=== PATIENT | female | born 1945 | race American Indian/Alaskan Native ===

== ENCOUNTER 2021-08-22 11:35 | Emergency (ER) | payer MEDICARE, OTHER ==
--- NOTE | 2021-08-22 12:12 | XRay Report ---
CHEST 2 VIEWS INDICATION: chest pain. COMPARISON: None FINDINGS: SUPPORT DEVICES: None. HEART: Within normal limits. LUNGS/PLEURA: No acute air space or interstitial disease. No pneumothorax. ADDITIONAL FINDINGS: None. IMPRESSION: 1. No acute findings. Signer Name: Ezequiel Dominguez MD Signed: 08/22/2021 12:07 PM Workstation Name: [id number]
--- NOTE | 2021-08-22 12:19 | Emergency Department Report ---
- General Chief complaint: Weakness Stated complaint: SOB Time Seen by Provider: 08/22/21 11:39 Source: patient, old records reviewed Mode of arrival: Ambulatory Limitations: No Limitations - History of Present Illness Initial comments: 76-year-old female with a past medical history of hypertension, diabetes, GERD, and anemia presents to the hospital complaining of progressively worsening generalized weakness since discharge from [facility] 2 months ago. Patient is a poor historian. Apparently she saw a lemon grower yesterday and states her hemoglobin dropped from 13-8. She denies history of GI bleed and is not currently on iron tablets. She states that during her admission to [facility] 2 months ago she received a blood transfusion for anemia. She produces 2 discharge summaries which only mentioned diabetes and an ED visit for nonspecific chest pain. Patient states she came to the ER today because she felt too weak to go to work and feels lightheaded and needs to rest after walking 2 to 3 feet. She denies headache, chest pain, shortness of breath, nausea, vomiting, melena, hematochezia, or dysuria. She did have some mild watery stool today. Patient was placed on insulin after her recent discharge from [facility]. She continues to check her glucose and denies episodes of hypoglycemia. As per MAR patient has been prescribed meclizine in 2014 normal stress test 04/2015 - Related Data Home Medications Medication Instructions Recorded Confirmed Last Taken Hydralazine HCl [Apresoline TAB] 50 mg PO TID 06/25/13 08/22/21 04/04/15 Losartan [Cozaar] 100 mg PO DAILY 06/25/13 08/22/21 04/04/15 hydroCHLOROthiazide 12.5 mg PO DAILY 06/25/13 08/22/21 04/04/15 [Hydrochlorothiazide] amLODIPine 10 mg PO DAILY 04/04/15 08/22/21 04/04/15 Previous Rx's Medication Instructions Recorded Last Taken Type Magnesium Oxide [Mag-Ox] 400 mg PO QDAY #10 tab 08/22/21 Unknown Rx Meclizine [Antivert] 25 mg PO TID PRN #30 tablet 08/22/21 Unknown Rx Allergies Allergy/AdvReac Type Severity Reaction Status Date / Time No Known Allergies Allergy Verified 08/22/21 17:18 ED Review of Systems ROS: Stated complaint: SOB Other details as noted in HPI Comment: All other systems reviewed and negative ED Past Medical Hx - Past Medical History Hx Hypertension: Yes Hx Diabetes: Yes (not on meds) Hx GERD: Yes - Surgical History Additional Surgical History: gallstone surgery - Social History Smoking Status: Never Smoker - Medications Home Medications: Home Medications Medication Instructions Recorded Confirmed Last Taken Type Hydralazine HCl [Apresoline TAB] 50 mg PO TID 06/25/13 08/22/21 04/04/15 History Losartan [Cozaar] 100 mg PO DAILY 06/25/13 08/22/21 04/04/15 History hydroCHLOROthiazide 12.5 mg PO DAILY 06/25/13 08/22/21 04/04/15 History [Hydrochlorothiazide] amLODIPine 10 mg PO DAILY 04/04/15 08/22/21 04/04/15 History Magnesium Oxide [Mag-Ox] 400 mg PO QDAY #10 tab 08/22/21 Unknown Rx Meclizine [Antivert] 25 mg PO TID PRN #30 tablet 08/22/21 Unknown Rx ED Physical Exam - General Limitations: No Limitations - Other Other exam information: General: No acute distress Head: Atraumatic Eyes: normal appearance ENT: Moist mucous membranes Neck: Normal appearance, no midline tenderness Chest: Clear to auscultation bilaterally CV: Regular rate and rhythm Abdomen: Soft, normal bowel sounds, nontender, nondistended, no rebound or guarding Back: Normal inspection Extremity: Normal inspection, full range of motion Neuro: Alert O x 3, no facial asymmetry, speech clear, no gross motor sensory deficit, [id number] function intact Psych: Appropriate behavior Skin: No rash ED Course Vital Signs 08/22/21 08/22/21 11:39 17:11 Temperature 98.7 F 99.6 F Pulse Rate 109 H 90 Respiratory 20 16 Rate Blood Pressure 148/81 Blood Pressure 151/79 [Right] O2 Sat by Pulse 99 92 Oximetry - Reevaluation(s) Reevaluation #1: 08/22/21 17:24 Patient endorses feeling somewhat better and states that she still feels "a little nervous". Chef Teacher documented room air saturation of 92%. I asked respiratory to verify. Patient does not endorse shortness of breath. Complains of a mild headache and Tylenol was ordered. 08/22/21 17:41 Respiratory therapist room air saturation 95% ED Medical Decision Making - Lab Data Result diagrams: 08/22/21 12:17 08/22/21 12:17 Lab Results 08/22/21 08/22/21 08/22/21 Range/Units 11:41 12:17 12:17 WBC 8.1 (4.5-11.0) K/mm3 RBC 2.45 L (3.65-5.03) M/mm3 Hgb 8.1 L (10.1-14.3) gm/dl Hct 23.2 L (30.3-42.9) % MCV 95 (79-97) fl MCH 33 H (28-32) pg MCHC 35 H (30-34) % RDW 16.2 H (13.2-15.2) % Plt Count 216 (140-440) K/mm3 Lymph % (Auto) 36.5 H (13.4-35.0) % Mcintosh % (Auto) 15.3 H (0.0-7.3) % Eos % (Auto) 0.0 (0.0-4.3) % Baso % (Auto) 0.1 (0.0-1.8) % Lymph # (Auto) 3.0 (1.2-5.4) K/mm3 Mcintosh # (Auto) 1.2 H (0.0-0.8) K/mm3 Eos # (Auto) 0.0 (0.0-0.4) K/mm3 Baso # (Auto) 0.0 (0.0-0.1) K/mm3 Seg Neutrophils % 48.1 (40.0-70.0) % Seg Neutrophils # 3.9 (1.8-7.7) K/mm3 Sodium 136 L (137-145) mmol/L Potassium 3.5 L (3.6-5.0) mmol/L Chloride 98.1 (98-107) mmol/L Carbon Dioxide 23 (22-30) mmol/L Anion Gap 18 mmol/L BUN 8 (7-17) mg/dL Creatinine 1.2 (0.6-1.2) mg/dL Estimated GFR 53 ml/min BUN/Creatinine Ratio 7 % Glucose 120 H (65-100) mg/dL POC Glucose 104 (70-105) mg/dL Calcium 8.4 (8.4-10.2) mg/dL Magnesium (1.7-2.3) mg/dL Total Bilirubin 1.30 H (0.1-1.2) mg/dL AST 25 (5-40) units/L ALT 8 (7-56) units/L Alkaline Phosphatase 34 L (35-129) units/L Troponin T < 0.010 (0.00-0.029) ng/mL Total Protein 7.0 (6.3-8.2) g/dL Albumin 3.8 L (3.9-5) g/dL Albumin/Globulin Ratio 1.2 % TSH (0.270-4.200) mlU/mL Free T4 (0.76-1.46) ng/dL Urine Color (Yellow) Urine Turbidity (Clear) Urine pH (5.0-7.0) Ur Specific [place] (1.003-1.030) Urine Protein (Negative) mg/dL Urine Glucose (UA) (Negative) mg/dL Urine Ketones (Negative) mg/dL Urine Blood (Negative) Urine Nitrite (Negative) Urine Bilirubin (Negative) Urine Urobilinogen (<2.0) mg/dL Ur Leukocyte Esterase (Negative) Urine WBC (Auto) (0.0-6.0) /HPF Urine RBC (Auto) (0.0-6.0) /HPF U Epithel Cells (Auto) (0-13.0) /HPF 08/22/21 08/22/21 08/22/21 Range/Units 12:17 12:17 Unknown WBC (4.5-11.0) K/mm3 RBC (3.65-5.03) M/mm3 Hgb (10.1-14.3) gm/dl Hct (30.3-42.9) % MCV (79-97) fl MCH (28-32) pg MCHC (30-34) % RDW (13.2-15.2) % Plt Count (140-440) K/mm3 Lymph % (Auto) (13.4-35.0) % Mcintosh % (Auto) (0.0-7.3) % Eos % (Auto) (0.0-4.3) % Baso % (Auto) (0.0-1.8) % Lymph # (Auto) (1.2-5.4) K/mm3 Mcintosh # (Auto) (0.0-0.8) K/mm3 Eos # (Auto) (0.0-0.4) K/mm3 Baso # (Auto) (0.0-0.1) K/mm3 Seg Neutrophils % (40.0-70.0) % Seg Neutrophils # (1.8-7.7) K/mm3 Sodium (137-145) mmol/L Potassium (3.6-5.0) mmol/L Chloride (98-107) mmol/L Carbon Dioxide (22-30) mmol/L Anion Gap mmol/L BUN (7-17) mg/dL Creatinine (0.6-1.2) mg/dL Estimated GFR ml/min BUN/Creatinine Ratio % Glucose (65-100) mg/dL POC Glucose (70-105) mg/dL Calcium (8.4-10.2) mg/dL Magnesium 1.00 L (1.7-2.3) mg/dL Total Bilirubin (0.1-1.2) mg/dL AST (5-40) units/L ALT (7-56) units/L Alkaline Phosphatase (35-129) units/L Troponin T (0.00-0.029) ng/mL Total Protein (6.3-8.2) g/dL Albumin (3.9-5) g/dL Albumin/Globulin Ratio % TSH 2.750 (0.270-4.200) mlU/mL Free T4 1.05 (0.76-1.46) ng/dL Urine Color Yellow (Yellow) Urine Turbidity Clear (Clear) Urine pH 6.0 (5.0-7.0) Ur Specific [place] 1.003 (1.003-1.030) Urine Protein <15 mg/dl (Negative) mg/dL Urine Glucose (UA) Neg (Negative) mg/dL Urine Ketones Neg (Negative) mg/dL Urine Blood Sm (Negative) Urine Nitrite Neg (Negative) Urine Bilirubin Neg (Negative) Urine Urobilinogen < 2.0 (<2.0) mg/dL Ur Leukocyte Esterase Neg (Negative) Urine WBC (Auto) 1.0 (0.0-6.0) /HPF Urine RBC (Auto) < 1.0 (0.0-6.0) /HPF U Epithel Cells (Auto) 1.0 (0-13.0) /HPF - EKG Data -: EKG Interpreted by [facility] EKG shows normal: sinus rhythm, ST-T waves (Lateral and inferior T wave inversion) Rate: normal (90) - EKG Data When compared to previous EKG there are: no significant change - Radiology Data Radiology results: report reviewed CHEST 2 VIEWS INDICATION: chest pain. COMPARISON: None FINDINGS: SUPPORT DEVICES: None. HEART: Within normal limits. LUNGS/PLEURA: No acute air space or interstitial disease. No pneumothorax. ADDITIONAL FINDINGS: None. IMPRESSION: 1. No acute findings. - Medical Decision Making 76-year-old female had an extended ED stay. Labs reveal low magnesium and low potassium which were both supplemented in the ED. Patient also was treated with IV fluids. She complains of feeling nervous since being discharged 2 months ago. Patient ambulates in the ED without difficulty. Patient has chronic anemia and does not require blood transfusion at that time. She does not endorse symptoms of GI bleed. No signs of infection identified. Vital signs unremarkable she will be discharged with magnesium tablets and encouraged to follow-up with her doctor for further treatment and evaluation Critical Care Time: No Critical care attestation.: If time is entered above; I have spent that time in minutes in the direct care of this critically ill patient, excluding procedure time. ED Disposition Clinical Impression: Dizziness, Hypomagnesemia, Hypokalemia Disposition: 01 HOME / SELF CARE / HOMELESS Is pt being admited?: No Does the pt Need Aspirin: No Condition: Stable Instructions: Hypomagnesemia, Dizziness, [id number], Hypokalemia Additional Instructions: Take the medication as prescribed. Follow-up with your doctor or doctor/clinic provided. Return if symptoms worsen as indicated by your discharge instructions. Prescriptions: Meclizine [Antivert] 25 mg PO TID PRN #30 tablet PRN Reason: Vertigo Magnesium Oxide [Mag-Ox] 400 mg PO QDAY #10 tab Referrals: PRIMARY CARE, [Primary Care Provider] - 3-5 Days Time of Disposition: 18:38
[2021-08-22] MEDS ORDERED: MECLIZINE 25 MG TAB PO ONE (12:45)
[2021-08-22 12:49] LABS: Basophils % (Auto) 0.1 % (0.0-1.8); Hematocrit 23.2 % (30.3-42.9); Hemoglobin 8.1 gm/dl (10.1-14.3); Lymphocytes % (Auto) 36.5 % (13.4-35.0); Mean Corpuscular HGB Conc 35 % (30-34); Mean Corpuscular Volume 95 fl (79-97); Monocytes # (Auto) 1.2 K/mm3 (0.0-0.8); Monocytes % (Auto) 15.3 % (0.0-7.3); Platelet Count 216 K/mm3 (140-440); Red Blood Count 2.45 M/mm3 (3.65-5.03); Red Cell Distribution Width 16.2 % (13.2-15.2)
[2021-08-22 13:05] LABS: Alanine Aminotransferase 8 units/L (7-56); Albumin 3.8 g/dL (3.9-5); BUN/Creatinine Ratio 7; Blood Urea Nitrogen 8 mg/dL (7-17); Calcium 8.4 mg/dL (8.4-10.2); Hemolysis Index 7
[2021-08-22 13:12] LABS: Free T4 (Free Thyroxine) 1.05 ng/dL (0.76-1.46)
[2021-08-22] MEDS ORDERED: POTASSIUM CHLORIDE ER 20 MEQ TAB PO ONE (13:15)
[2021-08-22] MEDS ORDERED: MAGNESIUM SULFATE 2 GM/50 ML BAG IV ONE (13:15)
[2021-08-22] MEDS ORDERED: SODIUM CHLORIDE 0.9% 500 ML 500 ML IV ONE (13:15)
[2021-08-22 15:55] LABS: Bilirubin,Urine NEG (Negative); Blood,Urine SM (Negative); Color,Urine Yellow (Yellow); Protein,Urine <15 mg/dL mg/dL (Negative); RBC,Urine < 1.0 /HPF (0.0-6.0); Urobilinogen,Urine < 2.0 mg/dL (<2.0)
[2021-08-22] MEDS ORDERED: ACETAMINOPHEN 325 MG TAB PO ONE (17:13)
[2021-08-22 18:49] VITALS: BP 156/87
--- NOTE | 2021-08-24 10:38 | Electrocardiograph Report ---
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
== END 2021-08-22 18:48 | disposition home or self-care (01) ==
LOC: ED 11:35
DX: E87.6 Hypokalemia (principal); E83.42 Hypomagnesemia; I10 Essential (primary) hypertension; K21.9 Gastro-esophageal reflux disease without esophagitis; E11.9 Type 2 diabetes mellitus without complications; Z79.899 Other long term (current) drug therapy
CPT/HCPCS: 36415; 71046; 80053; 81001; 82962; 83735; 84439; 84443; 84484; 85025; 93005; 96365; 99284; J3475; J7040